=== PATIENT | female | born 2000 | race African-American/Black ===

== ENCOUNTER 2022-08-23 06:00 | Inpatient (IN) ==
[2022-08-23] MEDS ORDERED: LACTATED RINGERS 1,000 ML IV ONE ×2 (07:52→10:58)
[2022-08-23] MEDS ORDERED: MEPERIDINE 50 MG/1 ML VIAL IV ONE (07:52)
[2022-08-23] MEDS ORDERED: ONDANSETRON 4 MG/2 ML VIAL IV ONE (07:52)
[2022-08-23] MEDS ORDERED: METHYLERGONOVINE 0.2 MG/1 ML AMP IM PRN (10:31)
[2022-08-23] MEDS ORDERED: TRANEXAMIC ACID 1,000 MG in SODIUM CHLORIDE 0.9% 100 ML IV PRN (10:31)
[2022-08-23] MEDS ORDERED: OXYTOCIN/LR 20 UNIT/1,000 ML BAG IV ONE ×2 (10:31→18:00)
[2022-08-23] MEDS ORDERED: CARBOPROST TROMETHAMINE 250 MCG/ML AMP IM PRN (10:31)
[2022-08-23] MEDS ORDERED: miSOPROStoL 200 MCG TABLET RECTAL PRN (10:31)
[2022-08-23] MEDS ORDERED: MEPERIDINE 50 MG/1 ML VIAL IV PRN (10:31)
[2022-08-23] MEDS ORDERED: ONDANSETRON 4 MG/2 ML VIAL IV PRN ×2 (10:31→18:00)
[2022-08-23] MEDS ORDERED: BUTORPHANOL 2 MG/ML VIAL IV PRN (10:31)
[2022-08-23 10:54] LABS: Basophils % 0.2 % (0.0-0.8); Hemoglobin 9.5 GM/DL (12.0-16.0); Immature Granulocytes % 0.9 %; Lymphocytes # 1.4 10*3/uL (1.4-4.0); Lymphocytes % 12.7 % (21.3-54.2); Mean Corpuscular HGB Conc 31.7 GM/DL (32-36); Mean Corpuscular Volume 72.1 FL (87-102); Mean Platelet Volume 10.9 FL (9.6-12.0); Monocytes # 0.4 10*3/uL (0.11-0.8); Monocytes % 3.6 % (1.7-12.7); Neutrophils % 82.6 % (38.7-73.9); Platelet Count 263 T/CUMM (130-400); Red Blood Count 4.16 MC/CUMM (3.8-5.5); Red Cell Distribution Width 16.4 % (9.3-17.3); White Blood Count 11.1 T/CUMM (4-12)
[2022-08-23] MEDS ORDERED: NALOXONE 0.4 MG/ML VIAL IV PRN (10:58)
[2022-08-23] MEDS ORDERED: LACTATED RINGERS 250 ML IV PRN (10:58)
[2022-08-23] MEDS ORDERED: LACTATED RINGERS 500 ML IV ONE (10:58)
[2022-08-23] MEDS ORDERED: FAMOTIDINE 20 MG/2 ML VIAL IV ONE (10:58)
[2022-08-23] MEDS ORDERED: diphenhydrAMINE 50 MG/1 ML VIAL IV PRN ×2 (10:58)
[2022-08-23] MEDS ORDERED: ePHEDrine 50 MG/ML VIAL IV PRN (10:58)
[2022-08-23] MEDS ORDERED: CITRIC ACID/SODIUM CITRATE 30 ML UDCUP PO ONE (10:58)
[2022-08-23] MEDS ORDERED: fentaNYL 2 MCG/ROPIV 0.2% EPID 100 ML EPIDURAL SCH (11:00)
[2022-08-23] MEDS ORDERED: LACTATED RINGERS 1,000 ML IV SCH ×3 (11:00)
[2022-08-23 13:03] LABS: Mucus,Urine Occasional /LPF (Occasional); RBC,Urine <1 /HPF (0-4)
[2022-08-23] MEDS: OXYTOCIN/LR 20 UNIT/1,000 ML BAG IV SCH ×2 (13:03→21:08)
[2022-08-23 13:04] LABS: Bilirubin,Urine Negative (Negative); Blood, Urine Negative (Negative); Glucose,Urine (UA) Negative (Negative); Ketones,Urine 40 mg/dL (Negative); Nitrite,Urine Negative (Negative); Protein,Urine Negative (Negative); Urine Appearance Clear (Clear); Urine Color Yellow (Yellow); Urine Specific Gravity 1.015 (1.001-1.035); Urine Urobilinogen 0.2 eU/dL (<2.0); Urine pH 6.5 (4.5-8.0)
[2022-08-23 17:56] LABS: Cord Arterial Blood HCO3 18.8 MMOL/L
[2022-08-23 17:59] LABS: Cord Venous Blood PO2 26.8
[2022-08-23] MEDS ORDERED: DIPH/TET/ACEL PERT BOOSTER VACCINE 0.5 ML VIAL IM ONE (18:00)
[2022-08-23] MEDS ORDERED: MEASLES/MUMPS/RUBELLA VACCINE 0.5 ML VIAL SUBCUT ONE (18:00)
[2022-08-23] MEDS ORDERED: WITCH HAZEL PADS 100/JAR TOP PRN (18:00)
[2022-08-23] MEDS ORDERED: RHO(D) IMMUNE GLOBULIN 300 MCG SYRINGE IM ONE (18:00)
[2022-08-23] MEDS ORDERED: oxyCODONE/ACETAMINOPHEN 5-325 MG TABLET PO PRN ×2 (18:00)
[2022-08-23] MEDS ORDERED: IBUPROFEN 800 MG TABLET PO PRN (18:00)
[2022-08-23] MEDS ORDERED: HYDROCORTISONE 2.5% RECTAL CREAM 30 GM TUBE TOP PRN (18:00)
[2022-08-23] MEDS ORDERED: LANOLIN 50% CREAM 0.3 OZ TUBE TOP PRN (18:00)
[2022-08-23] MEDS ORDERED: BENZOCAINE 20%/MENTHOL 0.5% SPRAY 56 GM CAN TOP PRN (18:00)
[2022-08-23] MEDS ORDERED: ACETAMINOPHEN 325 MG TABLET PO PRN (18:00)
[2022-08-23] MEDS ORDERED: BISACODYL 10 MG SUPP RECTAL PRN (18:00)
[2022-08-23] MEDS: DOCUSATE SODIUM 100 MG CAPSULE PO SCH (21:36)
[2022-08-24 06:22] LABS: Basophils % 0.2 % (0.0-0.8); Eosinophils % 0.1 % (0.00-10.9); Hematocrit 19.8 VOL% (35.7-47.0); Immature Granulocytes % 0.7 %; Lymphocytes # 2.1 10*3/uL (1.4-4.0); Lymphocytes % 14.1 % (21.3-54.2); Mean Corpuscular HGB Conc 32.3 GM/DL (32-36); Mean Corpuscular Volume 71.5 FL (87-102); Mean Platelet Volume 9.7 FL (9.6-12.0); Monocytes # 1.1 10*3/uL (0.11-0.8); Monocytes % 7.3 % (1.7-12.7); Neutrophils % 77.6 % (38.7-73.9); Platelet Count 215 T/CUMM (130-400); Red Blood Count 2.77 MC/CUMM (3.8-5.5); Red Cell Distribution Width 16.2 % (9.3-17.3)
[2022-08-24 06:24] LABS: Hemoglobin 6.4 GM/DL (12.0-16.0)
[2022-08-24 07:15] LABS: Basophils % 0.3 % (0.0-0.8); Eosinophils % 0.1 % (0.00-10.9); Hematocrit 19.3 VOL% (35.7-47.0); Immature Granulocytes % 0.9 %; Immature Granulocytes Absolute 0.13 #; Lymphocytes # 2.2 10*3/uL (1.4-4.0); Lymphocytes % 15.2 % (21.3-54.2); Mean Corpuscular HGB Conc 32.1 GM/DL (32-36); Mean Corpuscular Volume 72.3 FL (87-102); Mean Platelet Volume 10.4 FL (9.6-12.0); Monocytes % 7.1 % (1.7-12.7); Neutrophils % 76.4 % (38.7-73.9); Platelet Count 220 T/CUMM (130-400); Red Blood Count 2.67 MC/CUMM (3.8-5.5); Red Cell Distribution Width 16.3 % (9.3-17.3); White Blood Count 14.6 T/CUMM (4-12)
[2022-08-24 07:19] LABS: Hemoglobin 6.2 GM/DL (12.0-16.0)
[2022-08-24] MEDS ORDERED: SODIUM CHLORIDE 0.9% 1,000 ML IV PRN (07:26)
[2022-08-24] MEDS ORDERED: diphenhydrAMINE CAP 25 MG CAPSULE PO ONE (09:07)
[2022-08-24] MEDS ORDERED: ACETAMINOPHEN 500 MG TABLET PO ONE (09:07)
[2022-08-24] MEDS: FERROUS SULFATE 325 MG TABLET PO SCH ×2 (09:55→20:37)
[2022-08-24] MEDS: DOCUSATE SODIUM 100 MG CAPSULE PO SCH ×2 (09:55→20:37)
[2022-08-25 05:54] LABS: Hematocrit 21.5 VOL% (35.7-47.0); Hemoglobin 6.9 GM/DL (12.0-16.0)
[2022-08-25] MEDS: DOCUSATE SODIUM 100 MG CAPSULE PO SCH (08:29)
[2022-08-25] MEDS: FERROUS SULFATE 325 MG TABLET PO SCH (08:29)
[2022-08-25 09:59] VITALS: BP 120/78
[2022-08-25] MEDS ORDERED: INFLUENZA VIRUS VACCINE 0.5 ML SYRINGE IM ONE (10:53)
== END 2022-08-25 12:25 | disposition home or self-care (01) | DRG 560 ==
LOC: N.LD 06:00 → N.LDOUT 06:00 → EDSTATUS 07:56 → N.LD 10:36 → N.OB 21:50
PROVIDERS: ADMIT Obstetrics & Gynecology; ATTEND Obstetrics & Gynecology